=== PATIENT | female | born 1955 | race Caucasian/White ===

== ENCOUNTER 2022-12-04 10:44 | Outpatient (CLI) | payer OTHER ==
[2022-12-04 11:25] LABS: BASOPHILS % (AUTO) 0.5 % (0.0-2.0); EOSINOPHILS # (AUTO) 0.2 K/uL (0-0.4); EOSINOPHILS % (AUTO) 4.4 % (0.0-4.0); HEMATOCRIT 36.6 % (36-48); HEMOGLOBIN 12.3 g/dL (12.0-16.0); LYMPHOCYTES # (AUTO) 1.4 K/uL (2.5-16.5); LYMPHOCYTES % (AUTO) 24.8 % (20.5-51.1); MEAN CORPUSCULAR HEMOGLOBIN 29 pg (27-31); MEAN CORPUSCULAR HGB CONC 34 g/dL (33-37); MEAN CORPUSCULAR VOLUME 87.3 fL (80-94); MONOCYTES # (AUTO) 0.4 K/uL (0.8-1.0); MONOCYTES % (AUTO) 6.6 % (1.7-9.3); NEUTROPHILS # (AUTO) 3.6 K/uL (1.8-7.7); NEUTROPHILS % (AUTO) 63.7 % (42.2-75.2); PLATELET COUNT (AUTO) 174 K/uL (140-450); RED BLOOD CELL COUNT(AUTO) 4.19 MIL/uL (4.20-5.40); RED CELL DISTRIBUTION WIDTH 12.7 % (11.6-13.7); WHITE BLOOD COUNT (AUTO) 5.7 K/uL (4.8-10.8)
[2022-12-04 11:54] LABS: ALBUMIN 3.8 g/dL (3.4-5.0); ANION GAP 10.3 (8-16); CARBON DIOXIDE 29.7 mmol/L (21-32); CREATININE 0.6 mg/dL (0.6-1.3); THYROID STIMULATING HORMONE 2.77 uIU/mL (0.34-3.74); TOTAL BILIRUBIN 0.4 mg/dL (0.0-1.0); TOTAL PROTEIN, SERUM 7.1 g/dL (6.4-8.2)
[2022-12-05 09:07] LABS: FOLIC ACID > 20.00 ng/mL (>3.0)
[2022-12-05 13:56] LABS: HEMOGLOBIN A1C 5.8 % (4.8-5.6)
== END 2022-12-04 19:32 | disposition home or self-care (01) ==
LOC: MLB 10:44
PROVIDERS: ATTEND Internal Medicine Geriatric Medicine
DX: R73.03 Prediabetes (principal); E55.9 Vitamin D deficiency, unspecified
CPT/HCPCS: 36415; 80053; 82607; 82746; 83036; 84443; 85025